=== PATIENT | male | born 1995 | race Caucasian/White ===

== ENCOUNTER 2021-02-13 16:47 | Emergency (ER) | payer BC, SELFPAY ==
[2021-02-13 16:57] VITALS: BP 148/87; PULSE 75; RESP 16; TEMP 36.1; O2SAT 100
--- NOTE | 2021-02-13 17:08 | ED.MALEGU ---
HPI - Male Genitourinary General Chief complaint: Urogenital-Male Stated complaint: Possible UTI Time Seen by Provider: 02/13/21 17:07 Source: patient and RN notes reviewed Mode of arrival: ambulatory Limitations: no limitations History of Present Illness HPI Narrative: 25-year-old male presents with concern for dysuria with penile irritation, possible STD exposure. He denies urine frequency, urgency, nausea, vomiting, fever, lesions. MD Complaint: dysuria Related Data Allergies Allergy/AdvReac Type Severity Reaction Status Date / Time No Known Drug Allergies Allergy Unknown Verified 02/24/14 14:05 Review of Systems Review of Systems: CONSTITUTIONAL: Denies malaise, chills, sweats, or fever. GASTROINTESTINAL: Denies abdominal pain, nausea, vomiting, diarrhea GENITOURINARY: Reports dysuria, penile irritation. Denies discharge frequency, urgency, or hematuria. SKIN: Denies rash or itching, lesions MUSCULOSKELETAL: Denies back pain or myalgia. All systems reviewed & are unremarkable except as noted in HPI and below PMFSH Family History Family History (Updated 02/02/12 @ 16:19 by DOCTOR UNKNOWN) Other Cerebrovascular accident Social History Social History Smoking status: Never smoker Alcohol intake: never Comments At time of signature, agree with nursing past medical, surgical, social and family history. There is no relevant family history pertinent to the presenting complaint Exam Narrative: GENERAL: Well-appearing, well-nourished, and in no acute distress. HEAD: Normocephalic. EYES: PERRLA, conjunctivae clear. NECK: Supple. No lymphadenopathy CHEST: Clear to auscultation. No respiratory distress. HEART: Regular rate and rhythm. SKIN: Warm, dry, no rash. NEURO: Alert and oriented x3. PSYCH: Normal mood and affect Course Course Emergency Course: Patient is aware of diagnosis, understands and agrees to treatment plan. Anticipatory guidance given. Patient agrees to follow-up as directed and is aware of reasons to seek care at the emergency department. Portions of this record may have been created with voice recognition software Vital Signs Vital signs: Vital Signs Temperature 97 F L 02/13/21 16:57 Pulse Rate 75 02/13/21 16:57 Respiratory Rate 16 02/13/21 16:57 Blood Pressure 148/87 H 02/13/21 16:57 Pulse Oximetry 100 08/06/21 16:57 Temperature 97 F L 02/13/21 16:57 Pulse Rate 75 02/13/21 16:57 Respiratory Rate 16 02/13/21 16:57 Blood Pressure 148/87 H 02/13/21 16:57 Pulse Oximetry 100 02/13/21 16:57 Reviewed. MDM - Male Genitourinary MDM Narrative Medical decision making narrative: Exam findings show no acute concerns or changes; patient is non-toxic appearing and is in no distress. Patient is appropriate for outpatient treatment and follow-up. Differential Diagnosis Differential diagnosis: Likely urinary tract infection, urethritis, genital herpes simplex, prostatitis and other (STD) Lab Data Labs: Urine Characteristics Clear Critical Care Time Critical Care Time Critical Care Time: No Discharge Plan Discharge Clinical Impression: Possible exposure to STD, Dysuria Patient Disposition: Home, Self-Care Condition: Stable Instructions: Antibiotic Form, Safe Sex Practices (ED) Additional Instructions: You have been tested for potential gonorrhea, chlamydia, and trichomoniasis today. You have received partial antibiotics for gonorrhea and chlamydia today, a prescription has been called into your pharmacy to complete treatment for gonorrhea, chlamydia, and trichomoniasis. You will receive a phone call in 2-3 days with the results of today's testing. It is very important that you avoid unprotected intercourse during treatment and for 7 days AFTER TREATMENT is complete and until your partner(s) have been treated. Please encourage your partner(s) to seek testing and treatment. When you
[2021-02-13] MEDS: cefTRIAXone 1 GM VIAL 0.5 GM IM (17:21)
== END 2021-02-13 17:25 | disposition home or self-care (01) ==
PROVIDERS: Emergency Provider Nurse Practitioner; PCP Family Medicine
DX: R30.0 Dysuria (principal)
CPT/HCPCS: 87491; 87591; 87661; 96372; 99203; G0463; J0696

== ENCOUNTER 2021-04-06 17:26 | Emergency (ER) | payer BC, SELFPAY ==
[2021-04-06 17:30] VITALS: BP 123/66; PULSE 89; RESP 20; TEMP 36.7; O2SAT 100
--- NOTE | 2021-04-06 18:38 | ED.MALEGU ---
HPI - Male Genitourinary General Chief complaint: Urogenital-Male Stated complaint: Med refill Time Seen by Provider: 04/06/21 18:29 Source: patient and RN notes reviewed Mode of arrival: ambulatory Limitations: no limitations History of Present Illness HPI Narrative: Patient presents today requesting treatment for chlamydia. States he was treated last month for gonorrhea, chlamydia, and trichomonas and his subsequent testing was positive for chlamydia on 02/13/2021. He finished all of his medications. His girlfriend notified him today that she is positive for chlamydia and he came in today for another course of medication. He does not currently have any symptoms. Last unprotected exposure was approximately 3 weeks ago. MD Complaint: possible STD exposure Related Data Allergies Allergy/AdvReac Type Severity Reaction Status Date / Time No Known Drug Allergies Allergy Unknown Verified 02/24/14 14:05 Review of Systems Review of Systems: CONSTITUTIONAL: Denies body aches, fever, chills, or sweats. EYES: Denies visual changes, redness, or discharge. ENT: Denies rhinorrhea, congestion, sore throat, or otalgia. CARDIOVASCULAR: Denies chest pain, palpitations, or edema. RESPIRATORY: Denies cough or dyspnea. GASTROINTESTINAL: Denies abdominal pain, nausea, vomiting, or diarrhea. GENITOURINARY: Denies dysuria or hematuria. SKIN: Denies rash, itching, or wounds. MUSCULOSKELETAL: Denies back pain, joint pain, or myalgia. NEUROLOGIC: Denies headache, numbness, tingling, or weakness. PSYCH: Denies depression or anxiety. [facility] Family History Family History Other Cerebrovascular accident Social History Social History Smoking status: Never smoker Alcohol intake: never Comments At time of signature, I have reviewed and agree with nursing past medical, surgical, social and family history unless otherwise noted. Please see nursing chart for further information. There is no relevant family history pertinent to the presenting complaint Exam Narrative: GENERAL: Well-appearing, well-nourished, and in no acute distress. HEAD: Normocephalic, atraumatic. EYES: EOMI. No redness or drainage. Conjunctivae normal. ENT: Mucous membranes pink and moist. NECK: Normal AROM. Supple. No lymphadenopathy. CHEST: No respiratory distress. Clear to auscultation. HEART: Regular rate and rhythm. No murmur appreciated. Normal peripheral pulses. EXTREMITIES: Normal range of motion. No edema. SKIN: Warm, dry, no rash. Capillary refill normal. Normal skin turgor. NEURO: No focal deficits. Alert and oriented x3. Gait steady. PSYCH: Normal affect. No signs of depression or anxiety. Course Vital Signs Vital signs: Vital Signs Temperature 98.1 F 04/06/21 17:30 Pulse Rate 89 04/06/21 17:30 Respiratory Rate 20 04/06/21 17:30 Blood Pressure 123/66 04/06/21 17:30 Pulse Oximetry 100 04/06/21 17:30 Temperature 98.1 F 04/06/21 17:30 Pulse Rate 89 04/06/21 17:30 Respiratory Rate 20 04/06/21 17:30 Blood Pressure 123/66 04/06/21 17:30 Pulse Oximetry 100 04/06/21 17:30 Reviewed. Pt has been instructed to follow up with his PCP regarding his elevated blood pressure today. MDM - Male Genitourinary Differential Diagnosis Differential diagnosis: Likely other (Chlamydia, worried well) Lab Data Attestation: I reviewed the patient's lab results. Labs: Lab Results 04/06/21 Range/Units 18:44 C.trachomatis RNA (TMA) Pending N.gonorrhoeae RNA (TMA) Pending Critical Care Time Critical Care Time Critical Care Time: No Discharge Plan Discharge Clinical Impression: Encounter for screening for infections with a predominantly sexual mode of transmission Patient Disposition: Home, Self-Care Condition: Stable Instructions: Antibiotic Form, Chlamydia (ED) Additional Instructi
== END 2021-04-06 18:45 | disposition home or self-care (01) ==
PROVIDERS: Emergency Provider Nurse Practitioner; PCP Family Medicine
DX: Z20.2 Contact with and (suspected) exposure to infections with a predominantly sexual mode of transmission (principal)
CPT/HCPCS: 87491; 87591; 99213; G0463

== ENCOUNTER 2022-08-12 14:23 | Emergency (ER) | payer BC, SELFPAY ==
[2022-08-12 14:34] VITALS: BP 146/79; PULSE 80; RESP 16; TEMP 36.6; O2SAT 98
--- NOTE | 2022-08-12 14:46 | ED.ABDPAIN ---
HPI - Abdominal Pain General Chief Complaint: Abdominal Pain Stated Complaint: Nausea/Abdominal Pain Source: patient and RN notes reviewed History of Present Illness HPI narrative: 26-year-old male presents urgent care with girlfriend at bedside. Patient states Tuesday he had a [id number] for lunch a couple hours later began having diarrhea and abdominal cramping. Patient states his symptoms are improving however are still present. Patient reports some nausea but denies any vomiting. Denies any fevers, chills, dysuria, or back pain. Patient has been taking Tums at home. No one else in the house has been sick. Related Data Allergies Allergy/AdvReac Type Severity Reaction Status Date / Time No Known Allergies Allergy Verified 08/12/22 14:37 Review of Systems Review of Systems: CONSTITUTIONAL: Denies fever, chills, or sweats. EYES: Denies visual changes, redness, or discharge. ENT: Denies otalgia and sore throat CARDIOVASCULAR: Denies chest pain, palpitations, or edema. RESPIRATORY: Denies cough or dyspnea. GASTROINTESTINAL: Abdominal cramping and diarrhea GENITOURINARY: Denies dysuria or hematuria. SKIN: Denies rash or itching. MUSCULOSKELETAL: Denies back pain, joint pain, or myalgia. NEUROLOGIC: Denies headache, numbness, or weakness. [facility] Family History Family History Other Cerebrovascular accident Social History Social History Smoking status: Never smoker Alcohol intake: never Comments At the time of my signature, I reviewed and agree with the nursing past medical, surgical, social, and family history. There is no relevant family history pertinent to the patient complaint. Exam Narrative: GENERAL: This is a well-nourished, well-developed patient, in no apparent distress. HEAD: normocephalic, atraumatic. EYES: PERRL. Sclera clear/white. Vision is grossly intact. EARS: External ears normal, auditory canals clear and without drainage, TMs normal without perforation. Hearing grossly intact. NOSE: External nose normal with no obvious nasal discharge, nares without redness, no rhinorrhea. THROAT: Mucous membranes moist, posterior pharynx clear. NECK: Neck supple, non-tender without lymphadenopathy, masses or thyromegaly. CARDIOVASCULAR: Regular rate and rhythm without murmurs, gallops, or rubs. RESPIRATORY: Clear to auscultation. Breath sounds equal bilaterally. No wheezes, rales, or rhonchi. GASTROINTESTINAL: Abdomen soft, non-tender, nondistended. Bowel sounds are active. No hepato-splenomegaly, or palpable masses. No guarding. SKIN: warm, intact with no suspicious lesions or rash, good texture and turgor. NEURO: awake, alert, and oriented to person, place and time. There were no obvious focal neurologic abnormalities. Course Course Level of Care: Express Care Visit Vital Signs Vital signs: Vital Signs Temperature 97.9 F 08/12/22 14:34 Pulse Rate 80 08/12/22 14:34 Respiratory Rate 16 08/12/22 14:34 Blood Pressure 146/79 H 08/12/22 14:34 Pulse Oximetry 98 08/12/22 14:34 Oxygen Delivery Room Air 08/12/22 14:34 Temperature 97.9 F 08/12/22 14:34 Pulse Rate 80 08/12/22 14:34 Respiratory Rate 16 08/12/22 14:34 Blood Pressure 146/79 H 08/12/22 14:34 Pulse Oximetry 98 08/12/22 14:34 Oxygen Delivery Room Air 08/12/22 14:34 Reviewed. Patient is informed that they may have pre-hypertension or hypertension based on a blood pressure reading in the department. I recommend the patient call the primary care provider listed on their discharge instructions or a physician of their choice this week to arrange follow-up for further evaluation of possible pre-hypertension or hypertension. MDM - Abdominal Pain MDM Narrative Medical decision making narrative: You've been diagnosed with a viral illness that would not require antibiotics at this time
== END 2022-08-12 15:04 | disposition home or self-care (01) ==
PROVIDERS: Emergency Provider Nurse Practitioner Family; PCP Family Medicine
DX: K52.9 Noninfective gastroenteritis and colitis, unspecified (principal)
CPT/HCPCS: 99213; G0463